=== PATIENT | female | born 1975 | race Hispanic/Latino ===

== ENCOUNTER 2019-03-23 12:11 | Inpatient (IN) | payer OTHER ==
[~2019-03-23] VITALS: Ht 121.9 cm; Wt 72.6 kg
[2019-03-23] MEDS ORDERED: LIDOCAINE HCL 2% VISCOUS 15 ML UDCUP ONE (12:46)
[2019-03-23] MEDS ORDERED: SODIUM CHLORIDE 0.9% 1000ML 1,000 ML IV ONE ×2 (12:46→15:54)
[2019-03-23] MEDS ORDERED: ONDANSETRON HCL 4 MG/2 ML VIAL ONE (12:46)
[2019-03-23] MEDS ORDERED: MAG HYDROX/AL HYDROX/SIMETH ES 30 ML SUSP UDCUP ONE (12:46)
[2019-03-23 13:16] LABS: BASOPHILS % (AUTO) 0.4 % (0.0-5.0); EOSINOPHILS % (AUTO) 4.1 % (0.0-8.0); HEMATOCRIT 35.8 % (36-48); MEAN CORPUSCULAR HEMOGLOBIN 27.2 pg (27.0-33.0); MEAN CORPUSCULAR HGB CONC 32.6 g/dL (32.0-36.0); MEAN CORPUSCULAR VOLUME 83.7 fL (79-99); MONOCYTES % (AUTO) 5.9 % (3.0-13.0); NEUTROPHILS % (AUTO) 72.6 % (40.0-77.0); PLATELET COUNT (AUTO) 312 K/uL (130-400); RED BLOOD CELL COUNT(AUTO) 4.28 MIL/uL (4.00-5.50); RED CELL DISTRIBUTION WIDTH 14.3 % (11.0-15.5); WHITE BLOOD COUNT (AUTO) 7.3 K/uL (4.8-10.8)
[2019-03-23 13:19] LABS: APPEARANCE,URINE SL CLOUDY (CLEAR); BILIRUBIN,URINE NEGATIVE (NEGATIVE); COLOR,URINE YELLOW (YELLOW); GLUCOSE, URINE (UA) NEGATIVE (NEGATIVE); KETONES,URINE 5 mg/dL (NEGATIVE); LEUKOCYTE ESTERASE ,URINE TRACE (NEGATIVE); NITRATE,URINE NEGATIVE (NEGATIVE); OCCULT BLOOD,URINE TRACE-INTACT (NEGATIVE); PH,URINE 5.5 (5.0-8.0); PROTEIN,URINE TRACE mg/dL (NEGATIVE); UROBILINOGEN,URINE 0.2 mg/dL (0.2-1.0)
[2019-03-23 13:20] LABS: HCG,QUAL RESULT NEGATIVE (NEGATIVE)
[2019-03-23 13:22] LABS: BACTERIA,URINE Rare /HPF (None Seen); MUCUS,URINE Rare LPF (None Seen); RBC,URINE 0-1 /HPF (0-1); SQUAMOUS EPITHELIAL CELL,UR Few /HPF (0-2)
[2019-03-23 13:31] LABS: CREATININE 0.6 mg/dL (0.5-1.5); POTASSIUM 4.1 mmol/L (3.5-5.1)
[2019-03-23 13:34] LABS: ALBUMIN 3.4 g/dL (3.5-5.0); BILIRUBIN,TOTAL 0.4 mg/dL (0.2-1.0); TOTAL PROTEIN, SERUM 7.6 g/dL (6.0-8.3)
[2019-03-23] MEDS ORDERED: FAMOTIDINE/PF 20 MG/2 ML VIAL IV ONE (14:58)
[2019-03-23] MEDS ORDERED: MORPHINE SULFATE 4 MG/1ML SYG ONE (14:59)
[2019-03-23] MEDS ORDERED: IOHEXOL-350 75 ML VIAL IV ONE (15:36)
[2019-03-23] MEDS ORDERED: ZOSYN 3.375GM+NS 50ML 50 ML IV ONE (15:54)
[2019-03-23] MEDS ORDERED: DEXTROSE 5%-LACTATED RINGERS 1,000 ML IV SCH (16:15)
[2019-03-23] MEDS ORDERED: MORPHINE SULFATE 2 MG/ML 1ML SYG IV PRN (17:30)
[2019-03-23 19:55] VITALS: BP 107/70
[2019-03-23] MEDS ORDERED: METRONIDAZOLE 500MG/100ML BAG 100 ML IV SCH (22:00)
[2019-03-23] MEDS: FAMOTIDINE/PF 20 MG/2 ML VIAL IV SCH (22:06)
[2019-03-24] MEDS: ZOSYN 3.375GM+NS 50ML 50 ML IV SCH ×4 (00:15→16:40)
[2019-03-24] MEDS: LACTATED RINGERS 1000ML 1,000 ML IV SCH ×4 (00:27→21:44)
[2019-03-24 00:40] VITALS: BP 106/66
[2019-03-24 04:20] VITALS: BP 103/61
[2019-03-24 04:56] LABS: HEMATOCRIT 28.8 % (36-48); MEAN CORPUSCULAR HEMOGLOBIN 28.6 pg (27.0-33.0); NUCLEATED RED BLOOD CELLS 0.2 % (0.0-0.19); PLATELET COUNT (AUTO) 245 K/uL (130-400); RED BLOOD CELL COUNT(AUTO) 3.43 MIL/uL (4.00-5.50); RED CELL DISTRIBUTION WIDTH 14.1 % (11.0-15.5); WHITE BLOOD COUNT (AUTO) 4.3 K/uL (4.8-10.8)
[2019-03-24 05:11] LABS: ALBUMIN 2.6 g/dL (3.5-5.0); BILIRUBIN,TOTAL 0.4 mg/dL (0.2-1.0); CREATININE 0.7 mg/dL (0.5-1.5); POTASSIUM 3.4 mmol/L (3.5-5.1); TOTAL PROTEIN, SERUM 5.9 g/dL (6.0-8.3)
[2019-03-24 07:22] VITALS: BP 102/64
[2019-03-24] MEDS: FAMOTIDINE/PF 20 MG/2 ML VIAL IV SCH ×2 (08:07→21:36)
--- NOTE | 2019-03-24 08:23 | NUR ---
ACTIVITY PT AMBULATED TO BATHROOM, NO ASSISTANCE REQUIRED, WAS ABLE TO VOID 400mL OF CLEAR LIGHT SHERIF URINE, AMBULATED BACK TO BED, RECONNECTED SCDs, TOLERATED WELL, NO C/O PAIN, DIZZINESS, NOR FATIGUE Addendum: 03/24/19 at 0806 by FROY NOBLE RN Amended: Links added.
--- NOTE | 2019-03-24 09:43 | NUR ---
ROUNDS DR Reyes ROUNDED; IF NO SURGERY SCHEDULED, STATED TO PLACE ORDER FOR CLEAR LIQUIDS
[2019-03-24] MEDS: ENOXAPARIN SODIUM 40 MG/0.4 ML SYRINGE SQ SCH (10:43)
[2019-03-24 11:23] VITALS: BP 103/54
[2019-03-24 15:37] VITALS: BP 125/58
--- NOTE | 2019-03-24 16:51 | NUR ---
EMESIS PT IS FEELING NAUSEATED, VOMITED CLEAR LIQUIDS, WILL MEDICATE WITH ZOFRAN
[2019-03-24] MEDS: ONDANSETRON HCL 4 MG/2 ML VIAL IV PRN (16:56)
[2019-03-24] MEDS: MEPERIDINE-PF 25 MG/ML SYG IVP PRN (17:03)
[2019-03-24] MEDS ORDERED: POTASSIUM CHLORIDE 10% ELIXIR 20 MEQ/15 ML UDCUP PO SCH (19:00)
[2019-03-24 20:30] VITALS: BP 113/59
[2019-03-24] MEDS ORDERED: POTASSIUM CHLORIDE 10% ELIXIR 20 MEQ/15 ML UDCUP ONE (21:41)
[2019-03-25] MEDS: ZOSYN 3.375GM+NS 50ML 50 ML IV SCH ×3 (00:05→17:08)
[2019-03-25 00:35] VITALS: BP 116/71
[2019-03-25 04:10] VITALS: BP 125/74
[2019-03-25] MEDS: ONDANSETRON HCL 4 MG/2 ML VIAL IV PRN ×2 (04:14→13:12)
[2019-03-25] MEDS: MEPERIDINE-PF 25 MG/ML SYG IVP PRN ×2 (04:16→13:17)
[2019-03-25] MEDS: LACTATED RINGERS 1000ML 1,000 ML IV SCH ×2 (05:17→15:30)
[2019-03-25 05:23] LABS: HEMATOCRIT 28.3 % (36-48); MEAN CORPUSCULAR HEMOGLOBIN 27.5 pg (27.0-33.0); MEAN CORPUSCULAR HGB CONC 32.7 g/dL (32.0-36.0); MEAN CORPUSCULAR VOLUME 83.9 fL (79-99); NUCLEATED RED BLOOD CELLS 0.1 % (0.0-0.19); PLATELET COUNT (AUTO) 264 K/uL (130-400); RED BLOOD CELL COUNT(AUTO) 3.37 MIL/uL (4.00-5.50); RED CELL DISTRIBUTION WIDTH 14.2 % (11.0-15.5); WHITE BLOOD COUNT (AUTO) 4.3 K/uL (4.8-10.8)
[2019-03-25 05:35] LABS: ALBUMIN 2.6 g/dL (3.5-5.0); BILIRUBIN,TOTAL 0.4 mg/dL (0.2-1.0); CREATININE 0.8 mg/dL (0.5-1.5); POTASSIUM 3.6 mmol/L (3.5-5.1)
[2019-03-25 08:18] VITALS: BP 110/74
[2019-03-25] MEDS: FAMOTIDINE/PF 20 MG/2 ML VIAL IV SCH (08:50)
[2019-03-25] MEDS: ENOXAPARIN SODIUM 40 MG/0.4 ML SYRINGE SQ SCH (08:51)
--- NOTE | 2019-03-25 10:40 | NUR ---
DR. BOND AT BEDSIDE TO ASSESS AND TALK TO PT. NEW ORDERS RECEIVED FOR POSSIBLE DISCHARGE AFTER LUNCH IF TOLERATES LIQUIDS
[2019-03-25 11:23] VITALS: BP 112/65
[2019-03-25 16:57] VITALS: BP 128/75
--- NOTE | 2019-03-25 17:30 | NUR ---
PT TOLERATED DINNER AND HAD NO COMPLAINTS OF N/V OR ABDOMINAL PAIN.
--- NOTE | 2019-03-25 19:35 | NUR ---
DISCHARGE PT LEFT UNIT VIA WHEELCHAIR, ACCOMPANIED BY FAMILY. DENIED PAIN AND HAD NO COMPLAINTS. TRANSPORTED BY PERSONAL VEHICLE.
== END 2019-03-25 19:35 | disposition home or self-care (01) | DRG 438 ==
LOC: EDH 12:11 → EDHIP 17:19 → WSH 19:20 → UNDODISIN 03-25 19:35
PROVIDERS: ADMIT Hospitalist; ATTEND Hospitalist
DX: K85.90 Acute pancreatitis without necrosis or infection, unspecified (principal); K65.9 Peritonitis, unspecified; K80.00 Calculus of gallbladder with acute cholecystitis without obstruction; Z68.42 Body mass index [BMI] 45.0-49.9, adult; K52.9 Noninfective gastroenteritis and colitis, unspecified; E66.9 Obesity, unspecified; K76.0 Fatty (change of) liver, not elsewhere classified; Z98.891 History of uterine scar from previous surgery
CPT/HCPCS: 36415; 74177; 76705; 80053; 81001; 81025; 83690; 85025; 85027; G0378; J1650; J2175; J2270; J2405; J2543; J3490; J7030; J7120; Q9967